=== PATIENT | female | born 2000 | race Two or more races ===

== ENCOUNTER 2018-05-24 18:34 | Emergency (ER) | payer OTHER ==
[~2018-05-24] VITALS: Ht 167.6 cm; Wt 54.4 kg
[2018-05-24] MEDS ORDERED: NKM (18:52)
[2018-05-24 18:55] VITALS: BP 111/73
[2018-05-24 19:30] LABS: APPEARANCE,URINE CLEAR; BILIRUBIN, URINE NEGATIVE (NEGATIVE); GLUCOSE, URINE (UA) NEGATIVE (NEGATIVE); KETONES,URINE 2+ (NEGATIVE); LEUKOCYTE ESTERASE ,URINE 1+ (NEGATIVE); NITRITE,URINE NEGATIVE (NEGATIVE); PH,URINE 5 (4.5-8.0); PROTEIN,URINE 1+ (NEGATIVE); UROBILINOGEN,URINE NORMAL MG/DL (0.0-1.0)
--- NOTE | 2018-05-24 19:31 | Emergency Room Report ---
History of Present Illness General Chief Complaint: Nausea Source: Patient Present Illness HPI 18year-old female patient presents ER complaining of nausea and vomiting over the past day. Reports symptoms began yesterday after eating food. Reports that she had 3 episodes of vomiting today. Reports has been able tolerate by mouth fluids since that time. Denies abdominal pain. States that she contacted her primary care provider back, instructed her to come to the ER to rule out appendicitis. Patient denies right lower quadrant pain. Denies dysuria, hematuria, vaginal discharge. Denies , states she is on control medication. Denies fever, chest pain, shortness of breath. Denies hematemesis or coffee-ground emesis. Denies diarrhea. Reports vising [place] from [place]. denies syncope or dizziness. Denies photophobia, phonophobia, vertigo. Allergies: Coded Allergies: No Known Allergies (Unverified , 05/24/18) Patient History Past Medical History: see triage record Now: No Reviewed Nursing Documentation: PMH: Agreed; PSxH: Agreed Nursing Documentation-PMH Past Medical History: No Stated History Review of Systems All Other Systems: negative except mentioned in HPI Physical Exam Vital Signs Date Time Temp Pulse Resp B/P (MAP) Pulse Ox O2 Delivery O2 Flow Rate FiO2 05/24/18 18:46 97.5 97 18 111/73 98 Room Air 97.5 Sp02 EP Interpretation: reviewed, normal General Appearance: well appearing, no apparent distress, alert, GCS 15, non- toxic Head: normocephalic, atraumatic Eyes: bilateral eye normal inspection, bilateral eye PERRL ENT: hearing grossly normal, normal pharynx, no angioedema, normal voice, uvula midline, moist mucus membranes Neck: full range of motion Respiratory: lungs clear, normal breath sounds, no rhonchi, no respiratory distress, no accessory muscle use, no wheezing, speaking full sentences Cardiovascular #1: regular rate, rhythm, no edema Gastrointestinal: non tender, soft, no mass, non-distended, no guarding, no rebound, other - negative Rovsing, negative Jones, negative obturator Genitourinary: no CVA tenderness Musculoskeletal: back normal, digits/nails normal, gait/station normal, normal range of motion, non-tender Neurologic: alert, oriented x3, responsive, motor strength/tone normal, sensory intact Psychiatric: mood/affect normal Skin: no rash Medical Decision Making PA Attestation Dr. Urbina is my supervising Physician whom patient management has been discussed with. Diagnostic Impression: Primary Impression: Vomiting ER Course Pt. presents to the ED c/o vomiting. Ddx considered but are not limited to gastritis, viral syndrome, food poisoning , appendicitis, cholecystitis, UTI, . No abdominal tenderness to palpation, negative Jones sign, negative obturator, negative rovsing, low suspicion for cholecystitis or appendicitis. Does not require abdominal imaging at this time. Vital signs: are WNL, pt. is afebrile ED INTERVENTIONS: ER precautions given. provided patient with Tylenol and Zofran. Patient able tolerate by mouth fluids while in the ER. UA negative for acute disease Urine negative Results discussed with the patient. Likely food poisoning causing gastritis and vomiting symptoms. Advised to drink any fluids. cap refill less than 2 seconds, normal skin turgor, moist mucous membranes, no signs of dehydration, does not require labs or IV fluids at this time, able to tolerate by mouth fluids. ER precautions given. DISCHARGE Rx provided for Zofran At this time pt is stable for d/c to home. Patient is resting comfortably, in no acute distress, nontoxic appearing, talking without difficulty. Patient to take medications as instructed Will provide with patient care instructions and any necessary prescriptions. Care plan and follow-up instructions provided. Patient instructed to follow-up with primary care provider in 3 - 5 days. Patient questions asked and answered. Patient reports understanding and agreement to treatment plan.ER precautions given. Patient instructed to return to ER immediately for any new or worsening of symptoms including but not limited to increasing SOB, persistent fever, intractable vomiting. - Please note that this Emergency Department Report was dictated using [employer] review coordinator technology software, occasionally this can lead to erroneous entry secondary to interpretation by the dictation equipment. Labs Test 05/24/18 19:10 Urine Color Yellow Urine Appearance Clear Urine pH 5 (4.5-8.0) Urine Specific [place] 1.020 (1.005-1.035) Urine Protein 1+ (NEGATIVE) Urine Glucose (UA) Negative (NEGATIVE) Urine Ketones 2+ (NEGATIVE) Urine Blood Negative (NEGATIVE) Urine Nitrite Negative (NEGATIVE) Urine Bilirubin Negative (NEGATIVE) Urine Urobilinogen Normal MG/DL (0.0-1.0) Urine Leukocyte Esterase 1+ (NEGATIVE) Urine HCG, Qualitative Negative (NEGATIVE) Last Vital Signs Date Time Temp Pulse Resp B/P (MAP) Pulse Ox O2 Delivery O2 Flow Rate FiO2 05/24/18 18:55 97.5 97 18 111/73 98 Room Air 97.5 Disposition: HOME, SELF-CARE Condition: Stable Scripts Ondansetron (Zofran) 4 Mg Tablet 4 MG ORAL Q6H PRN for Nausea & Vomiting, #6 TAB Prov: Matthew Lew 05/24/18 Patient Instructions: Food Choices to Lower Your Triglycerides, Nausea and Vomiting, Adult Additional Instructions: Followup with primary care provider in 3 -5 days. Avoid spicy foods, avoid dairy foods. BRAT diet: bananas, rice, apple sauce, toast.. Take medications as directed. Patient questions asked and answered. ER precautions given, patient instructed to return to ER immediately for any new or worsening of symptoms. Matthew Lew May 24, 2018 19:31
[2018-05-24 19:32] LABS: COLOR,URINE YELLOW
[2018-05-24] MEDS ORDERED: ZOFRAN4 M1 ORAL (19:41)
[2018-05-24 20:00] VITALS: BP 116/76
== END 2018-05-24 20:00 | disposition home or self-care (01) ==
LOC: EMR 19:07
DX: R11.2 Nausea with vomiting, unspecified (principal)
CPT/HCPCS: 81003; 81025; 99283